=== PATIENT | male | born 1985 | race African-American/Black ===

== ENCOUNTER 2017-01-09 20:45 | Emergency (ER) | payer SELFPAY ==
[~2017-01-09] VITALS: Ht 180.3 cm; Wt 77.1 kg
[2017-01-09 21:07] VITALS: BP 109/65
[2017-01-09] MEDS ORDERED: ALBUTEROL SULF8.5 GM INH (21:19)
[2017-01-09] MEDS ORDERED: PREDNISONE20 MG ORAL (21:19)
[2017-01-09] MEDS ORDERED: PROMETHAZINE-C118 M1 ORAL (21:22)
[2017-01-09 21:25] VITALS: BP 109/65
--- NOTE | 2017-01-09 21:42 | Emergency Room Report ---
History of Present Illness General Chief Complaint: Upper Respiratory Illness Source: Patient Present Illness HPI 31-year-old male presents to ED complaining of cough and cold symptoms x10 days. States he had a dry cough initially which is now with yellowish phlegm. Notes chest tightness. Denies fevers or chills. Denies shortness of breath. Denies sore throat or earache. Admits to smoking. Denies sick contacts or recent travel. No aggravating relieving factors. Denies any other associated symptoms Allergies: Coded Allergies: No Known Allergies (Unverified , 01/09/17) Patient History Past Medical History: none Past Surgical History: none Pertinent Family History: none Social History: Reports: smoking, Denies: alcohol use, drug use Immunizations: UTD Reviewed Nursing Documentation: PMH: Agreed, PSxH: Agreed Nursing Documentation-PMH Past Medical History: No Stated History Review of Systems All Other Systems: negative except mentioned in HPI Physical Exam Vital Signs Date Time Temp Pulse Resp B/P Pulse Ox O2 Delivery O2 Flow Rate FiO2 01/09/17 21:03 97.7 77 18 115/61 99 Room Air Sp02 EP Interpretation: reviewed, normal General Appearance: no apparent distress, alert, GCS 15, non-toxic Head: normocephalic, atraumatic Eyes: bilateral eye PERRL, bilateral eye normal inspection ENT: hearing grossly normal, normal pharynx, no angioedema, normal voice Neck: full range of motion, supple/symm/no masses Respiratory: chest non-tender, lungs clear, normal breath sounds, speaking full sentences Cardiovascular #1: regular rate, rhythm, no edema Cardiovascular #2: 2+ carotid (R), 2+ carotid (L), 2+ radial (R), 2+ radial (L) , 2+ dorsalis pedis (R), 2+ dorsalis pedis (L) Gastrointestinal: normal bowel sounds, non tender, soft, non-distended, no guarding, no rebound Rectal: deferred Genitourinary: normal inspection, no CVA tenderness Musculoskeletal: back normal, gait/station normal, normal range of motion, non- tender Neurologic: alert, oriented x3, responsive, motor strength/tone normal, sensory intact, speech normal Psychiatric: judgement/insight normal, memory normal, mood/affect normal, no suicidal/homicidal ideation Reflexes: 3+ bicep (R), 3+ bicep (L), 3+ tricep (R), 3+ tricep (L), 3+ knee (R) , 3+ knee (L) Skin: normal color, no rash, warm/dry, well hydrated Lymphatic: no adenopathy Medical Decision Making Diagnostic Impression: Primary Impression: Bronchitis ER Course Hospital Course 31-year-old male presents to ED complaining of productive cough x 10 days Differential diagnoses include: URI, pharyngitis, otitis media, asthma Clinical course Patient placed on stretcher. After initial history, physical exam reveals a young male in no acute distress. Bilateral TM unremarkable. No pharyngeal erythema. No tonsillar exudates. No lymphadenopathy. lungs clear. abdomen soft. Clinical findings consistent with bronchitis. Reassurance given to parents. treatment is supportive therapy Diagnosis - bronchitis Stable and discharged home with Rx albuterol, prednisone, cough syrup. Instructed to followup with PMD. Return to ED if symptoms recur or worsen Last Vital Signs Date Time Temp Pulse Resp B/P Pulse Ox O2 Delivery O2 Flow Rate FiO2 01/09/17 21:25 97.9 71 16 109/65 98 Room Air Status: improved Disposition: HOME, SELF-CARE Condition: Stable Scripts Codeine/Promethazine Hcl* (PROMETHAZINE-CODEINE SYRUP*) 118 Ml Syrup 5 ML ORAL Q4H Y for For Cough, #118 ML 0 Refills Prov: TRE TADEO M.D. 01/09/17 Prednisone* (PREDNISONE*) 20 Mg Tablet 40 MG ORAL DAILY, #10 TAB Prov: TRE TADEO M.D. 01/09/17 Albuterol Sulfate* (ALBUTEROL SULFATE MDI*) 8.5 Gm Hfa.aer.ad 2 PUFF INH Q4H Y for cough/wheezing, #1 EA 0 Refills Prov: TRE TADEO M.D. 01/09/17 Referrals: NOT CHOSEN DOMINGO/,REFERRING (PCP) Patient Instructions: Acute Bronchitis, Pysf-ct-Vihv TRE TADEO M.D. Jan 09, 2017 21:42
== END 2017-01-09 21:25 | disposition home or self-care (01) ==
LOC: EMR 21:15
DX: J40 Bronchitis, not specified as acute or chronic (principal); F17.200 Nicotine dependence, unspecified, uncomplicated
CPT/HCPCS: 99284

== ENCOUNTER 2019-06-13 07:27 | Emergency (ER) | payer MEDICAID ==
[~2019-06-13] VITALS: Ht 180.3 cm; Wt 79.4 kg
[~2019-06-13 07:27] MED LIST: ALBUTEROL SULF8.5 GM INH; PREDNISONE20 MG ORAL; PROMETHAZINE-C118 M1 ORAL
[2019-06-13] MEDS ORDERED: NKM (07:35)
[2019-06-13 07:40] VITALS: BP 149/80
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
--- NOTE | 2019-06-13 07:58 | NUR ---
ED Nurse Note: pt went to ct with tech
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
--- NOTE | 2019-06-13 08:10 | NUR ---
ED Nurse Note: pt went back from ct
[2019-06-13] MEDS ORDERED: HYDROcodone/Acetamin 5/325 tab ORAL ONE (08:15)
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
--- NOTE | 2019-06-13 08:36 | NUR ---
ED Nurse Note: pt medicated as ordered, pt able to tolerate po meds. will continue to monitor.
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
[2019-06-13] MEDS ORDERED: Lidocaine 1% 10mg/ml/EPI 0.01mg/ml 20ml INJ ONE (09:00)
--- NOTE | 2019-06-13 09:40 | NUR ---
ED Nurse Note: ermd did 4 stitches on the right lac and 3 on the left, pt able to tolerate.
[2019-06-13] MEDS ORDERED: CEPHALEXIN500 MG ORAL (09:52)
[2019-06-13] MEDS ORDERED: IBUPROFEN600 MG ORAL (09:52)
[2019-06-13] MEDS ORDERED: BACITRACIN ZIN1 EACH TOPIC (09:52)
[2019-06-13] MEDS ORDERED: Bacitracin Oint UD TOPIC ONE (10:00)
[2019-06-13] MEDS ORDERED: Lidocaine HCl 2% Jelly 6ml Tube TOPIC ONE (10:00)
--- NOTE | 2019-06-13 10:00 | NUR ---
ED Nurse Note: josé luisd verbal ordered topical lidocaine jelly and bacitracin and carried out. will continue to montior.
[2019-06-13 10:21] VITALS: BP 130/78
--- NOTE | 2019-06-13 10:21 | NUR ---
ER DISCHARGE NOTE: wound dressing done, bacitracin applied. Patient is cleared to be discharged per ERMD, pt is aox4, on room air, with stable vital signs. pt was given dc and prescription instructions, pt was able to verbalize understanding, pt id band removed without complications. pt is able to ambulate with steady gait. pt took all belongings.
== END 2019-06-13 10:21 | disposition home or self-care (01) ==
LOC: EMR 08:10
DX: S01.82XA Laceration with foreign body of other part of head, initial encounter (principal); Y04.0XXA Assault by unarmed brawl or fight, initial encounter; Y92.9 Unspecified place or not applicable
CPT/HCPCS: 12052; 70450; 70486; 99284; Z7502

== ENCOUNTER 2019-06-20 10:13 | Emergency (ER) | payer MEDICAID ==
[~2019-06-20] VITALS: Ht 180.3 cm; Wt 77.1 kg
[~2019-06-20 10:13] MED LIST changes: +BACITRACIN ZIN1 EACH TOPIC; +CEPHALEXIN500 MG ORAL; +IBUPROFEN600 MG ORAL; +NKM
[2019-06-20 10:24] VITALS: BP 129/79
--- NOTE | 2019-06-20 10:30 | NUR ---
ED Nurse Note: patient walked into ED from home for suture removal on left and right orbital rim. patient is alert awake x4 ambulatory, denies any pain at this time.
[2019-06-20 11:30] VITALS: BP 129/79
--- NOTE | 2019-06-20 11:31 | Emergency Room Report ---
History of Present Illness General Chief Complaint: Wound Recheck/Suture Removal Source: Patient Present Illness HPI Patient is a 33-year-old male presented for suture removal. Patient recent sutures placed by me approximate 1 week ago. Patient denies any current complaints. He reportedly had been doing well. He denies any fever. He denies severe pain to the area. Allergies: Coded Allergies: No Known Allergies (Unverified , 01/09/17) Patient History Past Medical History: see triage record Reviewed Nursing Documentation: PMH: Agreed; PSxH: Agreed Nursing Documentation-PMH Past Medical History: No Stated History Review of Systems All Other Systems: negative except mentioned in HPI Physical Exam Vital Signs Date Time Temp Pulse Resp B/P (MAP) Pulse Ox O2 Delivery O2 Flow Rate FiO2 06/20/19 10:24 98.4 76 14 129/79 (96) 96 Room Air General Appearance: well appearing, no apparent distress, alert, GCS 15 Head: normocephalic, atraumatic Eyes: bilateral eye other - left eye subcunctival hemorhage ENT: hearing grossly normal, normal voice Neck: full range of motion, supple Respiratory: no respiratory distress, speaking full sentences Cardiovascular #1: normal peripheral pulses Neurologic: normal inspection, alert, oriented x3, normal gait Psychiatric: mood/affect normal Skin: other - healed laceration Medical Decision Making Diagnostic Impression: Primary Impression: Encounter for removal of sutures ER Course Patient presented for wound check. Differential diagnosis included was not limited to infected wound, nonhealed wound, neuroma, healed wound. Patient has a benign exam and does not appear to require any further imaging or laboratory testing at this time patient's sutures were removed.. Patient tolerated this well. Patient appears to be stable for follow-up as needed. He was advised to continue using sunscreen. To return if he had any concerns. Last Vital Signs Date Time Temp Pulse Resp B/P (MAP) Pulse Ox O2 Delivery O2 Flow Rate FiO2 06/20/19 10:24 98.4 76 14 129/79 96 Room Air Status: improved Disposition: HOME, SELF-CARE Condition: Stable Patient Instructions: Suture Removal, Care After Mao Aguirre MD Jun 20, 2019 11:31
--- NOTE | 2019-06-20 11:31 | NUR ---
discharged home with instruction to follow up with pmd
== END 2019-06-20 11:32 | disposition home or self-care (01) ==
LOC: EMR 11:01
DX: T14.8XXD Other injury of unspecified body region, subsequent encounter (principal); Z48.02 Encounter for removal of sutures
CPT/HCPCS: 99281